=== PATIENT | male | born 1955 | race Caucasian/White ===

== ENCOUNTER 2016-03-29 04:50 | Inpatient (IN) | payer OTHER ==
[2016-03-29] VITALS (19 sets, daily range): BP systolic 104–172; BP diastolic 63–97; PULSE 56–89; RESP 16–35; TEMP 99.5–101.9; O2SAT 90–98
[~2016-03-29] VITALS: Ht 177.8 cm; Wt 112.8 kg
[~2016-03-29 04:50] MED LIST: APIX5TAB PO; ATOR20TA PO; METF500 PO; METO50TA PO; MORPHINE SULFATE 4 MG/ML INJ IV PUSH PRN
[2016-03-29] MEDS ORDERED: METO50TA PO (05:21)
[2016-03-29] MEDS ORDERED: METF-381 PO (05:21)
[2016-03-29] MEDS ORDERED: APIX5TAB PO (05:21)
[2016-03-29] MEDS ORDERED: ATOR20TA15 PO (05:21)
--- NOTE | 2016-03-29 05:24 | PD ---
HPI Chief Complaint: Respiratory Symptoms Time Seen by Provider: 05:17 Travel History International Travel<30 days: No Contact w/Intl Traveler<30days: No Traveled to known affect area: No History of Present Illness HPI 60-year-old male presents to the emergency department by private transportation the care of his spouse for evaluation of cough congestion subjective fever and shortness of breath with wheezing. Patient has history of atrial fibrillation status post ablation November 2015 diabetes hypertension and dyslipidemia. Patient is a nonsmoker. Patient has had cough productive of yellowish brown sputum. Patient states due to wheezing and shortness of breath tonight could not sleep and decided to come to the emergency room. Patient has had symptoms for 3 days. Patient is not contacted his primary care provider. Patient's had no changes medications. Patient is not currently on antibiotic. Patient did not have influenza vaccine for the season. Spouse is not ill. Patient also complains of low back pain. Patient states symptoms are waned him when he's had food poisoning in the past. No report of nausea vomiting or diarrhea. No report of dietary indiscretion well water ingestion or foreign travel. Patient is prescribed Eliquis. No report of dysuria frequency urgency or hematuria. Patient's primary care provider Dr. Archibald, cardiologists Dr Tee and Dr Graham. [facility] Past Medical History Narrative Medical Atrial fibrillation/flutter hypertension dyslipidemia diabetes sleep apnea cardiac ablation no tobacco use nursing notes reviewed Atrial Fibrillation: Yes (A FLUTTER) Cancer: No Cardiovascular Problems: Yes (A-FLUTTER) Chest Pain: No Diabetes: Yes Patient Takes Glucophage: Yes Diminished Hearing: No Gastrointestinal Disorders: No Glaucoma: No Hepatitis: No Hiatal Hernia: No Hypertension: Yes Respiratory: Yes (SLEEP APNEA) Integumentary: No Thyroid Disease: No Tetanus Vaccination: Never Vaccinated Influenza Vaccination: No Past Surgical History Thoracic Surgery: No Social History Alcohol Use: Yes (WEEKLY) Tobacco Use: No Substance Use: No Allergies-Medications (Allergen,Severity, Reaction): Coded Allergies: No Known Allergies (Unverified , 03/29/16) Reported Meds & Prescriptions Reported Meds & Active Scripts Active Reported Metformin ER (Metformin HCl) 500 Mg Tab 500 Mg PO BID Eliquis (Apixaban) 5 Mg Tab 5 Mg PO BID Metoprolol Tartrate 50 Mg Tab 50 Mg PO BID Atorvastatin (Atorvastatin Calcium) 20 Mg Tab 20 Mg PO HS Review of Systems Except as stated in HPI: all other systems reviewed are Neg General / Constitutional: Positive: Fever HENT: Positive: Congestion (subjective cough productive of yellow-brown sputum) Cardiovascular: No: Chest Pain or Discomfort, Palpitations, Diaphoresis, Edema Respiratory: Positive: Cough, Shortness of Breath, Wheezing, Orthopnea Gastrointestinal: Positive: Constipation, No: Nausea, Vomiting, Abdominal Pain Genitourinary: Positive: Flank Pain, No: Dysuria Musculoskeletal: No: Myalgias, Arthralgias Skin: No Rash Neurologic: No: Weakness Psychiatric: Positive: Anxiety Hematologic/Lymphatic: No: Lymph Node Enlargement Physical Exam Narrative GENERAL: Well-developed well-nourished male in no acute distress no respiratory distress SKIN: Warm and dry. HEAD: Normocephalic. EYES: No scleral icterus. No injection or drainage. NECK: Supple, trachea midline. No JVD or lymphadenopathy. CARDIOVASCULAR: Regular rate and rhythm without murmurs, gallops, or rubs. RESPIRATORY: Breath sounds equal bilaterally except for right basilar crackles. No accessory muscle use. GASTROINTESTINAL: Abdomen soft, non-tender, nondistended. MUSCULOSKELETAL: No cyanosis, or trace pretibial pitting edema (patient reports this is chronic and not new for him). BACK: Nontender without obvious deformity. No CVA tenderness. Data Data Last Documented VS Vital Signs Date Time Temp Pulse Resp B/P Pulse Ox O2 Delivery O2 Flow Rate FiO2 03/29/16 07:28 99.6 87 19 138/64 92 Room Air Orders Complete Blood Count With Diff (03/29/16 05:17) Basic Metabolic Panel (Bmp) (03/29/16 05:17) B-Type Natriuretic Peptide (03/29/16 05:17) Act Partial Throm Time (Ptt) (03/29/16 05:17) Prothrombin Time / Inr (Pt) (03/29/16 05:17) Magnesium (Mg) (03/29/16 05:17) Troponin I (03/29/16 05:17) Influenzae A/B Antigen (03/29/16 05:17) Iv Access Insert/Monitor (03/29/16 05:17) Electrocardiogram (03/29/16 05:17) Ecg Monitoring (03/29/16 05:17) Oximetry (03/29/16 05:17) Oxygen Administration (03/29/16 05:17) Chest, Single Ap (03/29/16 05:17) Sodium Chloride 0.9% Flush (Ns Flush) (03/29/16 05:30) Urinalysis - C+S If Indicated (03/29/16 05:19) Acetaminophen (Tylenol) (03/29/16 05:45) Blood Culture (03/29/16 05:58) Ceftriaxone Inj (Rocephin Inj) (03/29/16 06:00) Azithromycin Inj (Zithromax Inj) (03/29/16 06:00) Acetaminophen (Tylenol) (03/29/16 06:00) Lactic Acid (03/29/16 05:58) Albuterol-Ipratropium Neb (Duoneb Neb) (03/29/16 06:00) Ondansetron Inj (Zofran Inj) (03/29/16 07:00) Morphine Inj (Morphine Inj) (03/29/16 07:00) Nitroglycerin 2% Oint (Nitroglycerin 2% (03/29/16 07:15) Admit Order (Ed Use Only) (03/29/16 ) ^ Saline Lock (03/29/16 07:35) Resp Oxygen Robby C Titrat 1-4 L (03/29/16 ) ^ Notify Dr: Other (03/29/16 07:35) Sodium Chloride 0.9% Flush (Ns Flush) (03/29/16 09:00) Sodium Chloride 0.9% Flush (Ns Flush) (03/29/16 07:45) Consult Cardiology (03/29/16 07:35) Labs Laboratory Tests Test 03/29/16 03/29/16 05:35 06:05 White Blood Count 7.3 TH/MM3 Red Blood Count 4.41 MIL/MM3 Hemoglobin 13.1 GM/DL Hematocrit 38.9 % Mean Corpuscular Volume 88.2 FL Mean Corpuscular Hemoglobin 29.6 PG Mean Corpuscular Hemoglobin 33.6 % Concent Red Cell Distribution Width 12.3 % Platelet Count 207 TH/MM3 Mean Platelet Volume 8.1 FL Neutrophils (%) (Auto) 79.1 % Lymphocytes (%) (Auto) 9.1 % Monocytes (%) (Auto) 10.4 % Eosinophils (%) (Auto) 1.0 % Basophils (%) (Auto) 0.4 % Neutrophils # (Auto) 5.7 TH/MM3 Lymphocytes # (Auto) 0.7 TH/MM3 Monocytes # (Auto) 0.8 TH/MM3 Eosinophils # (Auto) 0.1 TH/MM3 Basophils # (Auto) 0.0 TH/MM3 CBC Comment DIFF FINAL Differential Comment Prothrombin Time 11.7 SEC Prothromb Time International 1.1 RATIO Ratio Activated Partial 32.8 SEC Thromboplast Time Sodium Level 138 MEQ/L Potassium Level 3.9 MEQ/L Chloride Level 103 MEQ/L Carbon Dioxide Level 25.5 MEQ/L Anion Gap 10 MEQ/L Blood Urea Nitrogen 14 MG/DL Creatinine 0.70 MG/DL Estimat Glomerular Filtration 114 ML/MIN Rate Random Glucose 195 MG/DL Calcium Level 8.6 MG/DL Magnesium Level 1.6 MG/DL Troponin I 0.24 NG/ML B-Type Natriuretic Peptide 221 PG/ML Lactic Acid Level 1.2 mmol/L MDM Medical Decision Making Medical Screen Exam Complete: Yes Emergency Medical Condition: Yes Medical Record Reviewed: Yes Interpretation(s) EKG: accelerated junctional rhythm rate [address] elevation or injury pattern change noted cxr: Right lower lobe infiltrate, cardiomegaly FINDINGS: A single portable frontal view of the chest shows a vague area of consolidation within the medial right lung base. Remaining lungs are clear. No effusions. Heart is normal in size. Degenerative changes at the left a.c. joint. CONCLUSION: Right lower lobe infiltrate. Heron Downs Jr., MD on March 29, 2016 at 5:53 Board Certified Radiologist. This report was verified electronically. CBC: Values in normal range except for 79% neutrophils by automated differential Metabolic panel values grossly within normal range except for hyperglycemia of 195 Coagulation studies: Prolongation of PT and APTT lactic acid: 1.2, not elevated troponin I: elevated at 0.24 bnp: 200 Differential Diagnosis Cough, bronchitis, pneumonia, influenza, CHF Narrative Course Patient placed on cardiac nurse specialist IV access obtained EKG performed specimens collected and sent for resulting; patient's temperature in triage 100.2 we'll obtain repeat temperature to see if fever is worsening and presumptively administer acetaminophen 650 mg by mouth times one dose Chest x-ray performed and consistent with exam of right lower lobe crackles and infiltrate is identified in the right lower lobe on imaging study; repeat temperature was 101.9F additional acetaminophen 325 mg administered for a 1 g dose of acetaminophen; patient presumptively administered azithromycin 500 mg IV piggyback and Rocephin 1 g IV piggyback for community-acquired pneumonia; antibiotics were administered after blood cultures obtained and lactic acid was added to laboratory tests. Patient also continued to complain of wheezing and administered a one-time DuoNeb updraft. EKG is consistent with accelerated junctional rhythm junctional tachycardia versus a sinus tachycardia with first- degree AV block with poor P wave voltage. Patient does not appear to be in atrial fibrillation or atrial flutter. Sepsis Criteria SIRS Criteria (2 or more): Temp > 100.9 or < 96.8 (T: 101.9F), Heart rate over 90 (EKG: rate 103) Sepsis Criteria (SIRS+source): Infect source susp/known (RLL infiltrate) Criteria Outcome: Meets sepsis criteria Physician Communication Physician Communication case discussed with DR Calderon--will admit to his service --cardiology to determine [facility] re: elevated troponin I and paroxysmal a-fib case discussed with Dr Bruce covering for Dr Tee -- may stay at [facility] Diagnosis Primary Impression: Right pulmonary infiltrate on CXR Additional Impressions: Elevated troponin I level Atrial fibrillation Qualified Code: I48.0 - Paroxysmal atrial fibrillation Sepsis Qualified Code: A41.9 - Sepsis, due to unspecified organism Diabetes Admitting Information Admitting Physician Requests: Admit Inessa Brandt MD Mar 29, 2016 05:24
[2016-03-29] MEDS ORDERED: SODIUM CHLORIDE 0.9% FLUSH 5 ML FLUSH IVF PRN ×2 (05:30→07:45)
[2016-03-29] MEDS ORDERED: ACETAMINOPHEN 325 MG TAB PO ONE ×2 (05:45→06:00)
[2016-03-29 05:51] LABS: AUTOMATED NEUTROPHIL # 5.7 TH/MM3 (1.8-7.7); BASOPHIL % 0.4 % (0.0-2.0); EOSINOPHIL # 0.1 TH/MM3 (0-0.4); HEMATOCRIT 38.9 % (39.0-51.0); HEMO FLAGS DIFF FINAL; LYMPH % 9.1 % (9.0-44.0); LYMPHOCYTE # 0.7 TH/MM3 (1.0-4.8); MEAN CELL VOLUME 88.2 FL (80.0-100.0); MEAN CORPUSCULAR HEMOGLOBIN 29.6 PG (27.0-34.0); MEAN CORPUSCULAR HGB CONC 33.6 % (32.0-36.0); MONO % 10.4 % (0.0-8.0); NEUT % 79.1 % (16.0-70.0); PLATELET COUNT 207 TH/MM3 (150-450); RED BLOOD COUNT 4.41 MIL/MM3 (4.50-5.90); RED CELL DISTRIBUTION WIDTH 12.3 % (11.6-17.2); WHITE BLOOD COUNT 7.3 TH/MM3 (4.0-11.0)
--- NOTE | 2016-03-29 05:56 | RADHPO ---
EXAM DATE/TIME: 03/29/2016 05:46 [place] COMPARISON: No previous studies available for comparison. INDICATIONS : Cough, congestion MEDICAL HISTORY : Hypertension. SURGICAL HISTORY : None. ENCOUNTER: Initial ACUITY: 2 days PAIN SCORE: 4/10 LOCATION: Bilateral chest FINDINGS: A single portable frontal view of the chest shows a vague area of consolidation within the medial rig ht lung base. Remaining lungs are clear. No effusions. Heart is normal in size. Degenerative changes at the left a.c. joint. CONCLUSION: Right lower lobe infiltrate. Heron Downs Jr., MD on March 29, 2016 at 5:53 Board Certified Radiologist. This report was verified electronically.
[2016-03-29 05:59] LABS: POTASSIUM 3.9 MEQ/L (3.5-5.1)
[2016-03-29] MEDS ORDERED: RESP: ALBUTEROL 2.5 MG/IPRATROPIUM 0.5 MG NEB (SCH) NEB ONE (06:00)
[2016-03-29] MEDS ORDERED: cefTRIAXone INJ 1,000 MG in SODIUM CHLORIDE 0.9% INJ 100 ML IV ONE (06:00)
[2016-03-29] MEDS ORDERED: AZITHROMYCIN INJ 500 MG in SODIUM CHLOR 0.9% 250 ML INJ 250 ML IV ONE (06:00)
[2016-03-29 06:02] LABS: BICARBONATE 25.5 MEQ/L (21.0-32.0); MAGNESIUM 1.6 MG/DL (1.5-2.5)
[2016-03-29 06:04] LABS: APTT (PATIENT) 32.8 SEC (24.3-30.1); INTERNATIONAL NORMALIZED RATIO 1.1 RATIO; PROTHROMBIN TIME - PATIENT 11.7 SEC (9.8-11.6)
[2016-03-29] MEDS ORDERED: MORPHINE SULFATE 4 MG/ML INJ IV PUSH ONE (07:00)
[2016-03-29] MEDS ORDERED: ONDANSETRON HCL 4 MG/2 ML VIAL IV PUSH ONE (07:00)
[2016-03-29] MEDS ORDERED: NITROGLYCERIN 2% OINT 1 GM PACKET TOPICAL ONE (07:15)
[2016-03-29 08:56] LABS: GLUCOSE,URINE 250 mg/dL (NEG); NITRITE,URINE NEG (NEG); PH, URINE 5.5 (5.0-8.5)
[2016-03-29 08:59] LABS: BLOOD, URINE MOD (NEG); KETONE, URINE 80 OR GREATER mg/dL (NEG)
[2016-03-29] MEDS ORDERED: RESP: ALBUTEROL 2.5 MG/IPRATROPIUM 0.5 MG NEB (PRN) NEB (09:00)
[2016-03-29] MEDS ORDERED: SODIUM CHLORIDE 0.9% FLUSH 5 ML FLUSH FLUSH PRN (09:00)
[2016-03-29] MEDS ORDERED: NALOXONE HCL 0.4 MG/ML AMP IV PRN (09:00)
[2016-03-29] MEDS ORDERED: SODIUM CHLORIDE 0.9% FLUSH 5 ML FLUSH IVF SCH (09:00)
[2016-03-29] MEDS: METOPROLOL TARTRATE 50 MG TAB PO SCH ×2 (09:00→20:42)
[2016-03-29] MEDS: SODIUM CHLORIDE 0.9% FLUSH 5 ML FLUSH FLUSH SCH ×2 (09:00→20:44)
[2016-03-29] MEDS ORDERED: ACETAMINOPHEN 325 MG TAB PO PRN (09:00)
[2016-03-29 09:01] LABS: COMMENT (UR) CULT NOT INDICATED; CULTURE IF INDICATED CULT NOT INDICATED; METHOD OF COLLECTION CLEAN CATCH; RBC, URINE 0-3 /hpf (0-3); SQUAMOUS EPITHELIAL CELL URINE 0-5 /hpf (0-5); URINE COLOR DARK-YELLOW (YELLW/STRAW); WBC, URINE 0-2 /hpf (0-5)
[2016-03-29] MEDS: APIXABAN 5 MG TABLET PO SCH ×2 (09:27→20:42)
[2016-03-29] MEDS ORDERED: metFORMIN HCL 500 MG TAB PO SCH (10:00)
--- NOTE | 2016-03-29 12:48 | HHI.HP ---
HPI Service [facility] Hospitalists Primary Care Physician No Primary Care Physician Admission Diagnosis RLL infiltrate; elevated troponin I; sepsis; h/o afib Chief Complaint: cough congestion 3 days Travel History International Travel<30 Days: No Contact w/Intl Traveler <30 Da: No Traveled to Known Affected Are: No Sepsis Criteria SIRS Criteria (2 or more): Temp > 100.9 or < 96.8, Heart rate over 90 History of Present Illness 60-year-old male presents to the emergency department by private transportation the care of his spouse for evaluation of cough congestion subjective fever and shortness of breath with wheezing. Patient has history of atrial fibrillation status post ablation November 2015 diabetes hypertension and dyslipidemia. Patient is a nonsmoker. Patient has had cough productive of yellowish brown sputum. Patient states due to wheezing and shortness of breath tonight could not sleep and decided to come to the emergency room. Patient has had symptoms for 3 days. Patient is not contacted his primary care provider. Patient's had no changes medications. Patient is not currently on antibiotic. Patient did not have influenza vaccine for the season. Spouse is not ill. Patient also complains of low back pain. Patient states symptoms are waned him when he's had food poisoning in the past. No report of nausea vomiting or diarrhea. No report of dietary indiscretion well water ingestion or foreign travel. Patient is prescribed Eliquis. No report of dysuria frequency urgency or hematuria. Patient's primary care provider Dr. Archibald, cardiologists Dr Tee and Dr Graham. In er found to have rt lower lung infiltrate and did have sirs criteria and had positive troponin ,was started on ntg paste and has been chest pain free. Review of Systems Respiratory: COMPLAINS OF: Cough, Wheezing Past Family Social History Past Medical History atrial fib s/p ablatiopn ,hypertension,dyslipidemia,diabetes ?sleep apnea Past Surgical History none Reported Medications metformin 1000 bid,elsquis 5 bid,metoprolol 50 bid,atorvastatin 20 Allergies: Coded Allergies: No Known Allergies (Unverified , 03/29/16) Social History occ etoh Physical Exam Vital Signs Vital Signs Date Time Temp Pulse Resp B/P Pulse Ox O2 Delivery O2 Flow Rate FiO2 03/29/16 10:55 100.0 84 17 148/67 97 Nasal Cannula 2 03/29/16 10:51 97 Nasal Cannula 2 03/29/16 10:51 Nasal Cannula 2 03/29/16 10:00 56 17 104/63 96 Nasal Cannula 2 03/29/16 08:48 75 17 140/70 98 Nasal Cannula 2 03/29/16 08:48 93 Nasal Cannula 2.00 03/29/16 07:58 93 Nasal Cannula 2 03/29/16 07:28 99.6 87 19 138/64 92 Room Air 03/29/16 05:52 101.9 87 18 172/78 93 Room Air 03/29/16 05:52 18 93 Room Air 03/29/16 05:51 93 Room Air 03/29/16 05:14 18 94 Room Air 03/29/16 05:01 100.2 89 16 164/97 93 Room Air Physical Exam GENERAL: This is a well-nourished, well-developed patient, in no apparent distress. SKIN: No rashes, ecchymoses or lesions. Cool and dry. HEAD: Atraumatic. Normocephalic. No temporal or scalp tenderness. EYES: Pupils equal round and reactive. Extraocular motions intact. No scleral icterus. No injection or drainage. ENT: Nose without bleeding, purulent drainage or septal hematoma. Throat without erythema, tonsillar hypertrophy or exudate. Uvula midline. Airway patent. NECK: Trachea midline. No JVD or lymphadenopathy. Supple, nontender, no meningeal signs. CARDIOVASCULAR: Regular rate and rhythm without murmurs, gallops, or rubs. RESPIRATORY: Decrease breath sound rhonchi rt base GASTROINTESTINAL: Abdomen soft, non-tender, nondistended. No hepato-splenomegaly , or palpable masses. No guarding. MUSCULOSKELETAL: Extremities without clubbing, cyanosis, or edema. No joint tenderness, effusion, or edema noted. No calf tenderness. Negative Homans sign bilaterally. NEUROLOGICAL: Awake and alert. Cranial nerves II through XII intact. Motor and sensory grossly within normal limits. Five out of 5 muscle strength in all muscle groups. Normal speech. Laboratory Laboratory Tests Test 03/29/16 03/29/16 03/29/16 05:35 06:05 08:45 White Blood Count 7.3 Red Blood Count 4.41 Hemoglobin 13.1 Hematocrit 38.9 Mean Corpuscular Volume 88.2 Mean Corpuscular Hemoglobin 29.6 Mean Corpuscular Hemoglobin 33.6 Concent Red Cell Distribution Width 12.3 Platelet Count 207 Mean Platelet Volume 8.1 Neutrophils (%) (Auto) 79.1 Lymphocytes (%) (Auto) 9.1 Monocytes (%) (Auto) 10.4 Eosinophils (%) (Auto) 1.0 Basophils (%) (Auto) 0.4 Neutrophils # (Auto) 5.7 Lymphocytes # (Auto) 0.7 Monocytes # (Auto) 0.8 Eosinophils # (Auto) 0.1 Basophils # (Auto) 0.0 CBC Comment DIFF FINAL Differential Comment Prothrombin Time 11.7 Prothromb Time International 1.1 Ratio Activated Partial 32.8 Thromboplast Time Sodium Level 138 Potassium Level 3.9 Chloride Level 103 Carbon Dioxide Level 25.5 Anion Gap 10 Blood Urea Nitrogen 14 Creatinine 0.70 Estimat Glomerular Filtration 114 Rate Random Glucose 195 Calcium Level 8.6 Magnesium Level 1.6 Troponin I 0.24 B-Type Natriuretic Peptide 221 Lactic Acid Level 1.2 Urine Collection Type CLEAN CATCH Urine Color DARK-YELLOW Urine Turbidity CLEAR Urine pH 5.5 Urine Specific [place] 1.029 Urine Protein 100 Urine Glucose (UA) 250 Urine Ketones 80 OR GREATER Urine Occult Blood MOD Urine Nitrite NEG Urine Bilirubin NEG Urine Leukocyte Esterase NEG Urine RBC 0-3 Urine WBC 0-2 Urine Squamous Epithelial 0-5 Cells Microscopic Urinalysis Comment CULT NOT INDICATED Date/Time Procedure Status Source Growth 03/29/16 06:10 Aerobic Blood Culture Received Blood Peripheral Pending 03/29/16 06:10 Anaerobic Blood Culture Received Blood Peripheral Pending 03/29/16 05:33 Influenza Types A,B Antigen (SAIRA) Received Nasal Washing Pending Result Diagram: 03/29/16 0535 03/29/16 0535 Course in er received rocephin ,zithromax ,nebulizer and ntg paste Septic Shock Reassessment Heart: Regular rate and rhythm Lungs: Diminished Skin: Warm Capillary Refill: Brisk Assessment and Plan Problem List: (1) Right pulmonary infiltrate on CXR Status: Acute Plan: contonie rocephin and zithromax IV and nebulizer as necessary add cough medicine (2) Elevated troponin I level Status: Acute Plan: recheck troponin cardiology was consulted as heart rate initially was elevated appears stable now doubt significance troponin will recheck (3) Atrial fibrillation Status: Resolved Plan: ekg shows no atrial fib at this time (4) Diabetes Status: Chronic Plan: continue metformin (5) Sepsis Status: Acute Plan: doubt sepsis ,barely meets criteria lactic acid normal ,heart rate now controlled temp improved Assessment and Plan as above Code Status full Discussed Condition With patient Physician Certification 2 Midnight Certification Type: Admission for Inpatient Services Order for Inpatient Services The services are ordered in accordance with Medicare regulations or non- Medicare payer requirements, as applicable. In the case of services not specified as inpatient-only, they are appropriately provided as inpatient services in accordance with the 2-midnight benchmark. Estimated LOS (days): 2 2 days is the estimated time the patient will need to remain in the hospital, assuming treatment plan goals are met and no additional complications. Post-Hospital Plan: Home Problem Qualifiers (1) Atrial fibrillation: Qualified Code: I48.0 - Paroxysmal atrial fibrillation (2) Sepsis: Qualified Code: A41.9 - Sepsis, due to unspecified organism Krunal Blackwell MD Mar 29, 2016 12:48
[2016-03-29] MEDS: guaiFENesin/CODEINE SYRUP 200 MG/20 MG/10 ML CUP PO PRN ×2 (12:55→18:56)
[2016-03-29] MEDS ORDERED: MORPHINE SULFATE 4 MG/ML INJ IV PRN (16:00)
[2016-03-29] MEDS ORDERED: MORPHINE SULFATE 4 MG/ML INJ IV PUSH PRN (17:00)
--- NOTE | 2016-03-29 18:10 | EKG ---
Date Performed: 03/29/2016 Time Performed: 05:19:20 PTAGE: 60 years EKG: Accelarated junctional rhythm Left axis deviation Poor R wave progression - probable normal variant When compared to previous tracing, the right bundle branch block Has resolved. Abnormal ECG PREVIOUS TRACING : 12/11/2015 08.07 DOCTOR: Ana Bruce Interpretating Date/Time 03/29/2016 18:39:35
--- NOTE | 2016-03-29 20:28 | MB ---
cc: ADAM HAJI MD DATE OF CONSULTATION: 03/29/2016 REASON FOR CONSULTATION: Atrial fibrillation. HISTORY OF PRESENT ILLNESS Mr. Perez is a 60-year-old patient of Dr. Tee and Dr. Graham. He had an ablation of his atrial fibrillation in November. He has done reasonably well since. The patient reports that he has had three days of progressive shortness of breath and was unable to lie flat at night which precipitated his visit last night. He was subsequently diagnosed with pneumonia. He, however, also was having atrial fibrillation and AIVR as well as elevated troponin. Cardiology was subsequently consulted. The patient reports to me that his systolic pressure last night before he came in was over 200. Other than the shortness of breath, he does not have any cardiac complaints. PAST MEDICAL HISTORY: Significant for: 1. Hypertension. 2. Hyperlipidemia. 3. Diabetes. OUTPATIENT MEDICATIONS: 1. Metformin. 2. Eliquis. 3. Metoprolol. 4. Atorvastatin. ALLERGIES: NO KNOWN DRUG ALLERGIES. SOCIAL HISTORY: The patient is and occasionally has alcohol. REVIEW OF SYSTEMS: Except what is mentioned in the HPI, all 12 systems are negative. PHYSICAL EXAMINATION: VITAL SIGNS: 99.5, 76, 144/65. GENERAL: He is a well-appearing man who is in no apparent distress. NECK: Free from JVD. LUNGS: Bilaterally clear to auscultation. CARDIOVASCULAR: He has a normal S1-S2. I did not appreciate any murmurs, rubs, or gallops. ABDOMEN: Soft. EXTREMITIES: Free from edema. LABORATORY VALUES: Significant for serial troponins of 0.24 and 0.27 with a BNP of 221. Chest x-ray shows right lower lobe infiltrate. EKG: Accelerated junctional rhythm at 103 beats per minute. IMPRESSION: Atrial fibrillation. The patient does have a history of same. I did not see any definitive EKGs for atrial fibrillation, rather accelerated junctional rhythm. In any case, I would continue the patient on his present medical regimen that includes both the metoprolol and Eliquis. Indeterminate troponin. This could have been precipitated by either his elevated blood pressure or the pneumonia/sepsis. The patient reports a normal stress test, just prior to his ablation this fall. He is not having any true cardiac symptoms, thus at this point I would just simply continue medical management. Hypertension. The patient is under fair control currently. Considering he could be given adding Amlodipine or lisinopril if his pressure trends up. I will be available on a p.r.n. basis. Nery Menjivar/SHAHZAD /6:23 PM /8:19 PM
[2016-03-29] MEDS: ATORVASTATIN 20 MG TAB PO SCH (20:42)
[2016-03-29] MEDS: metFORMIN HCL 500 MG TAB PO SCH (20:43)
[2016-03-29] MEDS: NITROGLYCERIN 2% OINT 1 GM PACKET TOPICAL SCH (21:40)
[2016-03-30] VITALS (8 sets, daily range): BP systolic 137–160; BP diastolic 71–77; PULSE 64–82; RESP 22–26; TEMP 98–100.8; O2SAT 95–98
[2016-03-30] MEDS ORDERED: MAGNESIUM HYDROXIDE SUSP 30 ML CUP PO ONE (00:15)
[2016-03-30] MEDS ORDERED: ZOLPIDEM TARTRATE 10 MG TAB PO ONE (00:15)
[2016-03-30] MEDS ORDERED: ZOLPIDEM TARTRATE 10 MG TAB PO PRN (00:15)
[2016-03-30] MEDS ORDERED: MAGNESIUM HYDROXIDE SUSP 30 ML CUP PO PRN (00:15)
[2016-03-30 05:19] LABS: AUTOMATED NEUTROPHIL # 4.6 TH/MM3 (1.8-7.7); BASOPHIL % 0.3 % (0.0-2.0); EOSINOPHIL # 0.1 TH/MM3 (0-0.4); EOSINOPHIL % 0.8 % (0.0-4.0); HEMATOCRIT 36.8 % (39.0-51.0); HEMO FLAGS DIFF FINAL; LYMPH % 18.3 % (9.0-44.0); LYMPHOCYTE # 1.2 TH/MM3 (1.0-4.8); MEAN CELL VOLUME 89.1 FL (80.0-100.0); MEAN CORPUSCULAR HEMOGLOBIN 28.8 PG (27.0-34.0); MEAN CORPUSCULAR HGB CONC 32.3 % (32.0-36.0); MONO % 13.6 % (0.0-8.0); PLATELET COUNT 195 TH/MM3 (150-450); RED BLOOD COUNT 4.13 MIL/MM3 (4.50-5.90); RED CELL DISTRIBUTION WIDTH 12.4 % (11.6-17.2); WHITE BLOOD COUNT 6.8 TH/MM3 (4.0-11.0)
[2016-03-30 05:23] LABS: POTASSIUM 3.5 MEQ/L (3.5-5.1)
[2016-03-30 05:26] LABS: BICARBONATE 27.1 MEQ/L (21.0-32.0)
[2016-03-30] MEDS: NITROGLYCERIN 2% OINT 1 GM PACKET TOPICAL SCH ×3 (05:59→22:00)
[2016-03-30] MEDS: AZITHROMYCIN INJ 500 MG in SODIUM CHLOR 0.9% 250 ML INJ 250 ML IV SCH (06:00)
[2016-03-30] MEDS: APIXABAN 5 MG TABLET PO SCH ×2 (09:38→20:52)
[2016-03-30] MEDS: METOPROLOL TARTRATE 50 MG TAB PO SCH ×2 (09:38→20:52)
[2016-03-30] MEDS: metFORMIN HCL 500 MG TAB PO SCH (09:38)
[2016-03-30] MEDS: cefTRIAXone INJ 1,000 MG in SODIUM CHLORIDE 0.9% INJ 100 ML IV SCH (09:39)
[2016-03-30] MEDS: SODIUM CHLORIDE 0.9% FLUSH 5 ML FLUSH FLUSH SCH ×2 (09:39→21:02)
--- NOTE | 2016-03-30 10:37 | HHI.PR ---
Subjective Remarks Patient admitted with pneumonia and positive troponin ,seen by cardiology and no active cardiac problem at this time . Patient feeling ok but did drop oxygen sat last night and has more rhonchi today . I have change nebulizer to q 6h from prn and will recheck cxr and get CT thorax also ask for pulmonary consult. Patient will have walk test today. Objective Vitals GENERAL: Well-nourished, well-developed patient. SKIN: Warm and dry. HEAD: Normocephalic. EYES: No scleral icterus. No injection or drainage. NECK: Supple, trachea midline. No JVD or lymphadenopathy. CARDIOVASCULAR: Regular rate and rhythm without murmurs, gallops, or rubs. RESPIRATORY: Breath sounds decreased with bilateral rhonchi GASTROINTESTINAL: Abdomen soft, non-tender, nondistended. MUSCULOSKELETAL: No cyanosis, or edema. BACK: Nontender without obvious deformity. No CVA tenderness. EXTREMITIES:no edema Vital Signs Date Time Temp Pulse Resp B/P Pulse Ox O2 Delivery O2 Flow Rate FiO2 03/30/16 08:00 98.3 03/30/16 07:50 96 Nasal Cannula 4.00 03/30/16 04:00 65 03/30/16 04:00 98.2 65 24 147/77 95 03/30/16 01:15 22 03/30/16 00:00 100.8 79 26 137/77 96 03/30/16 00:00 79 03/30/16 00:00 100.8 79 26 137/77 96 03/29/16 21:00 99.8 78 33 122/69 96 03/29/16 21:00 78 33 122/69 96 03/29/16 20:15 96 Nasal Cannula 2.00 03/29/16 20:00 99.8 72 22 147/72 94 03/29/16 20:00 82 03/29/16 20:00 72 22 147/72 94 03/29/16 19:00 80 25 136/64 96 03/29/16 18:15 72 32 154/72 97 03/29/16 18:00 72 33 148/66 96 03/29/16 17:45 80 33 151/79 94 03/29/16 17:30 72 30 149/70 95 03/29/16 17:15 70 30 148/66 95 03/29/16 17:00 72 31 145/72 95 03/29/16 16:49 100.0 80 35 146/73 90 03/29/16 16:36 74 17 144/65 97 Nasal Cannula 2 03/29/16 14:42 99.5 76 17 142/74 95 Nasal Cannula 2 03/29/16 14:36 Nasal Cannula 2 03/29/16 10:55 100.0 84 17 148/67 97 Nasal Cannula 2 03/29/16 10:51 97 Nasal Cannula 2 03/29/16 10:51 Nasal Cannula 2 03/29/16 03/29/16 03/30/16 15:00 23:00 07:00 Intake Total 360 ml 490 ml Output Total 300 ml 400 ml 700 ml Balance -300 ml -40 ml -210 ml Intake Oral 360 ml 240 ml IV Total 250 ml Output Urine Total 300 ml 400 ml 700 ml # Voids 1 # Bowel Movements 0 0 Result Diagram: 03/30/16 0500 03/30/16 0500 A/P Problem List: (1) Right pulmonary infiltrate on CXR Status: Acute Plan: contonie rocephin and zithromax IV and nebulizer as necessary add cough medicine more rhonchi get pulmonary evaluation change to q 6 h nebulizer (2) Elevated troponin I level Status: Acute Plan: recheck troponin cardiology was consulted as heart rate initially was elevated appears stable now doubt significance troponin will recheck cardiology felt no active cardiac disease (3) Atrial fibrillation Status: Resolved Plan: ekg shows no atrial fib at this time (4) Diabetes Status: Chronic Plan: continue metformin (5) Sepsis Status: Acute Plan: doubt sepsis ,barely meets criteria lactic acid normal ,heart rate now controlled temp improved Assessment and Plan patient was hypoxic last night will get walk test Problem Qualifiers (1) Atrial fibrillation: Qualified Code: I48.0 - Paroxysmal atrial fibrillation (2) Sepsis: Qualified Code: A41.9 - Sepsis, due to unspecified organism Krunal Blackwell MD Mar 30, 2016 10:37
[2016-03-30] MEDS: METFORMIN HOLD POST IV CONTRAST XX SCH (13:10)
[2016-03-30] MEDS ORDERED: IOHEXOL 350 MG/ML 10 ML VIAL (for RAD DIAG) IV ONE (13:23)
--- NOTE | 2016-03-30 14:04 | RADHPO ---
EXAM DATE/TIME: 03/30/2016 13:19 [facility] COMPARISON: CHEST SINGLE AP, March 29, 2016, 5:46. INDICATIONS : Cough, short of breath. MEDICAL HISTORY : Hypertension. SURGICAL HISTORY : None. ENCOUNTER: Initial ACUITY: 4 - 6 days PAIN SCORE: 0/10 LOCATION: Bilateral chest FINDINGS: There is improved aeration of the lung handley on today's exam compared to the prior study. The infilt rate in the right lower lung has essentially resolved. There continues to be some pulmonary venous co ngestion in both lung handley. No pleural effusions are seen. The heart size is stable. No new infiltr ates are demonstrated. CONCLUSION: There is improved aeration of both lung handley compared to the prior exam. There is pulmonary venous congestion bilaterally. Chucho Newell MD on March 30, 2016 at 14:01 Board Certified Radiologist. This report was verified electronically.
[2016-03-30] MEDS: RESP: ALBUTEROL 2.5 MG/IPRATROPIUM 0.5 MG NEB (SCH) NEB ×2 (15:08→21:11)
[2016-03-30] MEDS ORDERED: DEXTROSE 50% IN WATER 50 ML VIAL(D50) IV PUSH PRN (15:30)
[2016-03-30] MEDS ORDERED: GLUCAGON 1 MG/ML VIAL OTHER PRN (15:30)
--- NOTE | 2016-03-30 15:38 | RADHPO ---
EXAM DATE/TIME: 03/30/2016 13:09 [facility] COMPARISON: CHEST PA & LAT, March 30, 2016, 13:19. INDICATIONS : Productive cough. IV CONTRAST: 75 cc Omnipaque 350 (iohexol) IV RADIATION DOSE: 26.36 CTDIvol (mGy) MEDICAL HISTORY : Cardiovascular disease. Diabetes. SURGICAL HISTORY : None. ENCOUNTER: Initial ACUITY: 2 days PAIN SCALE: 2/10 LOCATION: chest TECHNIQUE: Volumetric scanning of the chest was performed. Using automated exposure control and adjustment of t he mA and/or kV according to patient size, radiation dose was kept as low as reasonably achievable to obtain optimal diagnostic quality images. FINDINGS: LUNGS: A few mild scattered interstitial infiltrates are noted bilaterally. Otherwise there is good aeration of both lung handley. There is a mild infiltrate in the left lung base. PLEURA: There is either some mild pleural thickening versus small effusions. MEDIASTINUM: A few mildly prominent nonspecific mediastinal lymph nodes are demonstrated. There is a pretracheal l ymph node measuring 2.2 cm. There is a subcarinal lymph node measuring 2.8 cm. AXILLAE: Within normal limits. No lymphadenopathy. SKELETAL: Within normal limits for patient age. Primary bony degenerative changes. MISCELLANEOUS: The visualized upper abdominal organs demonstrate no acute abnormality. CONCLUSION: 1. A few mild scattered interstitial infiltrates are noted in both lung handley. There is a mild infil trate in the left lung base. 2. There are several mildly prominent nonspecific mediastinal lymph nodes. The largest lymph node toshia sures 2.8 cm in the subcarinal region.. This could represent reactive adenopathy. However, malignancy is not excluded. A PET scan could be performed to evaluate for focal hypermetabolic activity. Other hancock, a followup noncontrast CT thorax will be performed in approximately 4 weeks after appropriate m edical therapy to evaluate for improvement. Chucho Newell MD on March 30, 2016 at 15:28 Board Certified Radiologist. This report was verified electronically.
[2016-03-30] MEDS: INSULIN ASPART SUPPLEMENTAL SCALE SQ SCH ×2 (16:00→21:00)
[2016-03-30 18:51] LABS: BLOOD GAS BASE EXCESS 1.6 mmol/L (-2-2); BLOOD GAS CARBOXYHEMOGLOBIN 0.1 % (0-4); BLOOD GAS HCO3 25 mmol/L (22-26); BLOOD GAS METHEMOGLOBIN 0.4 % (0-2); BLOOD GAS O2 HGB SATURATION 89 % (90-100); BLOOD GAS OXYGEN CONTENT 14.6 Vol % (12.0-20.0); BLOOD GAS PCO2 34 mmHg (38-42); BLOOD GAS PO2 58 mmHg (61-120); BLOOD GAS TOTAL HGB 11.6 G/DL (12.0-16.0)
[2016-03-30 18:52] LABS: CRITICAL VALUE YES; DRAW SITE RT RADIAL; FIO2 21 %; NUMBER OF ARTERIAL PUNCTURES 1; STAT NO; ULNAR PULSE PRESENT
--- NOTE | 2016-03-30 19:14 | MB ---
cc: TOSHA HERNANDEZ MD DATE OF CONSULTATION 03/30/[address] Blackwell. REASON FOR CONSULTATION Shortness of breath. HISTORY OF THE PRESENT ILLNESS Mr. Perez is a pleasant 60-year-old white male with a history of hypertension, diabetes mellitus, history of atrial fibrillation status post ablation . He came to the hospital with 2-3 days history of not feeling well. He has congestion in his chest, wheezing, cough hacking type and had fever up to 102 degrees. He did not have any chest pain. No nausea or vomiting. Because of the worsening of his symptoms he came to the hospital. IMAGING He had a chest x-ray done which shows right lower lobe pulmonary infiltrate. He had a CT scan of the chest done which shows few mild scattered interstitial infiltrates, have mildly prominent mediastinal lymph nodes. LABORATORY DATA His CBC showed WBC count 6.8, hemoglobin 11.9, hematocrit 36.8, MCV 89. Platelet count 195. Sodium 139, potassium 3.5, chloride 104, CO2 27, BUN 12, creatinine 0.75. Troponin 0.24. Blood culture is negative. Influenza antigen is negative. PAST MEDICAL HISTORY 1. History of diabetes mellitus. 2. Hypertension. 3. Atrial fibrillation status post ablation. MEDICATIONS He is currently takin. Metformin 1000 mg twice a day. 2. Albuterol/Atrovent nebulizer treatment. 3. He is on insulin. 4. Rocephin 1 gram a day. 5. Zithromax 500 mg a day. 6. Ambien 10 milligrams at nighttime. 7. Nitroglycerin 1/2 inch q.6h. 8. Lipitor 20 mg a day. 9. Robitussin AC cough syrup. 10. Eliquis 5 mg twice a day. 11. Metoprolol 50 mg twice a day. ALLERGIES NO KNOWN DRUG ALLERGIES. SOCIAL HISTORY He has no history of smoking. Drinks socially. He works as a registry nurse. FAMILY HISTORY He is now for 10 years. He has three children. REVIEW OF SYSTEMS Normally he is up, around and active. Weight is stable. No malignancy. No deep venous thrombosis or pulmonary embolism. No seizure, stroke or epilepsy. PHYSICAL EXAMINATION GENERAL: Well built, well-nourished male not in any acute distress. VITAL SIGNS: Blood pressure 152/71, heart rate 82, respirations 26, temperature 99.5. HEENT: Pupils are equal and reactive to light. Oral mucosa, nasal mucosa normal. NECK: Supple. JVP not raised. CHEST: Air entry equal bilaterally. Faint rhonchi. CARDIOVASCULAR: S1, S2 normal. ABDOMEN: Soft, nontender, nondistended. Bowel sounds are present. EXTREMITIES: No edema. IMPRESSION 1. Right lower lobe infiltrate. 2. Mild bronchospasm which is improving. 3. Hypertension. 4. Diabetes mellitus. 5. Atrial fibrillation status post ablation. PLAN We will continue antibiotics Rocephin and Zithromax. Give aerosol treatment. Wean him to room air and get a blood gas. He is on Eliquis twice a day. Ambien 10 milligrams at night. When he gets better we will check his pulmonary function studies. Further treatment will depend on the course in the hospital. Thank you Dr. Blackwell for this consultation. MD BRET Canseco/MIKAEL /6:27 PM /6:48 PM JSOEFA
[2016-03-30] MEDS: ATORVASTATIN 20 MG TAB PO SCH (20:54)
--- NOTE | 2016-03-30 23:41 | EKG ---
Date Performed: 03/30/2016 Time Performed: 05:56:12 PTAGE: 60 years EKG: Sinus rhythm Prolonged QT interval Left anterior fascicular block Borderline ECG PREVIOUS TRACING : 03/29/2016 05.19 DOCTOR: Maria Teresa Graham Interpretating Date/Time 03/30/2016 23:39:45
[2016-03-31] VITALS (7 sets, daily range): BP systolic 141–178; BP diastolic 58–84; PULSE 62–92; RESP 20–26; TEMP 98.5–98.7; O2SAT 90–99
[2016-03-31] MEDS: RESP: ALBUTEROL 2.5 MG/IPRATROPIUM 0.5 MG NEB (SCH) NEB ×3 (03:50→15:40)
[2016-03-31] MEDS: AZITHROMYCIN INJ 500 MG in SODIUM CHLOR 0.9% 250 ML INJ 250 ML IV SCH (05:17)
[2016-03-31] MEDS: NITROGLYCERIN 2% OINT 1 GM PACKET TOPICAL SCH ×2 (05:17→14:00)
[2016-03-31] MEDS: INSULIN ASPART SUPPLEMENTAL SCALE SQ SCH ×3 (06:48→15:07)
[2016-03-31] MEDS: SODIUM CHLORIDE 0.9% FLUSH 5 ML FLUSH FLUSH SCH (08:26)
[2016-03-31] MEDS: METOPROLOL TARTRATE 50 MG TAB PO SCH (08:26)
[2016-03-31] MEDS: cefTRIAXone INJ 1,000 MG in SODIUM CHLORIDE 0.9% INJ 100 ML IV SCH (08:26)
[2016-03-31] MEDS: APIXABAN 5 MG TABLET PO SCH (08:26)
--- NOTE | 2016-03-31 11:10 | HHI.FF ---
Face to Face Verification Diagnosis: (1) Right pulmonary infiltrate on CXR Home Health Nursing Order: IV medication administration Instructions: patient will need 1 week IV rocephin 1gm and zithromax 500 mg IV 1 week,pulse oximetry I have seen patient Hardy Melvin Perez Jr on 03/31/16. My clinical findings support the need for the requested home health care services because: Patient has SOB I certify that my clinical findings support that this patient is homebound because: Unsafe to leave home unassisted patient with pneumonia and is hypxic with ambulation at this time considered home bound Krunal Blackwell MD Mar 31, 2016 11:09
[2016-03-31] MEDS: METFORMIN HOLD POST IV CONTRAST XX SCH (13:10)
[2016-03-31] MEDS ORDERED: IPRASOL NEB (13:33)
[2016-03-31] MEDS ORDERED: ROCE1INJ3 IV (13:33)
[2016-03-31] MEDS ORDERED: METF500 PO (13:33)
[2016-03-31] MEDS ORDERED: NEBULIZER1 MI1 FM (14:09)
--- NOTE | 2016-03-31 14:35 | RADHPO ---
EXAM DATE/TIME: 03/31/2016 13:52 [facility] COMPARISON: No previous studies available for comparison. INDICATIONS : Post PICC line placement. MEDICAL HISTORY : Hypertension. SURGICAL HISTORY : None. ENCOUNTER: Subsequent ACUITY: 1 week PAIN SCORE: 0/10 LOCATION: Right chest FINDINGS: A single view of the chest demonstrates the lungs to be symmetrically aerated without evidence of mas s, infiltrate or effusion. Right PICC line in superior cava. Minimal basilar atelectasis. The cardio mediastinal contours are unremarkable. Osseous structures are intact. CONCLUSION: 1. Minimal basilar atelectasis. Right PICC line in superior vena cava. No pneumothorax. No effusion. Alex Barajas MD on March 31, 2016 at 14:33 Board Certified Radiologist. This report was verified electronically.
--- NOTE | 2016-03-31 18:28 | HHI.DS ---
Discharge Summary Admission Date Mar 29, 2016 at 07:37 Admitting Diagnosis RLL infiltrate; elevated troponin I; sepsis; h/o afib (1) Right pulmonary infiltrate on CXR Diagnosis: Principal (2) Elevated troponin I level Diagnosis: Secondary (3) Atrial fibrillation Diagnosis: Secondary (4) Diabetes Diagnosis: Secondary (5) Sepsis Diagnosis: Secondary Consultants cardiology,pulmonary Procedures PICC line Brief History 60-year-old male presents to the emergency department by private transportation the care of his spouse for evaluation of cough congestion subjective fever and shortness of breath with wheezing. Patient has history of atrial fibrillation status post ablation November 2015 diabetes hypertension and dyslipidemia. Patient is a nonsmoker. Patient has had cough productive of yellowish brown sputum. Patient states due to wheezing and shortness of breath tonight could not sleep and decided to come to the emergency room. Patient has had symptoms for 3 days. Patient is not contacted his primary care provider. Patient's had no changes medications. Patient is not currently on antibiotic. Patient did not have influenza vaccine for the season. Spouse is not ill. Patient also complains of low back pain. Patient states symptoms are waned him when he's had food poisoning in the past. No report of nausea vomiting or diarrhea. No report of dietary indiscretion well water ingestion or foreign travel. Patient is prescribed Eliquis. No report of dysuria frequency urgency or hematuria. Patient's primary care provider Dr. Archibald, cardiologists Dr Tee and Dr Graham. In er found to have rt lower lung infiltrate and did have sirs criteria and had positive troponin ,was started on ntg paste and has been chest pain free. CBC/BMP: 03/30/16 0500 03/30/16 0500 Significant Findings Laboratory Tests Test 03/29/16 03/29/16 03/29/16 03/30/16 05:35 08:45 12:15 05:00 Red Blood Count 4.41 MIL/MM3 4.13 MIL/MM3 (4.50-5.90) (4.50-5.90) Hematocrit 38.9 % 36.8 % (39.0-51.0) (39.0-51.0) Neutrophils (%) (Auto) 79.1 % (16.0-70.0) Monocytes (%) (Auto) 10.4 % 13.6 % (0.0-8.0) (0.0-8.0) Lymphocytes # (Auto) 0.7 TH/MM3 (1.0-4.8) Prothrombin Time 11.7 SEC (9.8-11.6) Activated Partial 32.8 SEC Thromboplast Time (24.3-30.1) Random Glucose 195 MG/DL 157 MG/DL (74-106) (74-106) Troponin I 0.24 NG/ML 0.27 NG/ML 0.24 NG/ML (0.02-0.05) (0.02-0.05) (0.02-0.05) B-Type Natriuretic Peptide 221 PG/ML (0-100) Urine Color DARK-YELLOW (YELLW/STRAW) Urine Protein 100 mg/dL (NEG-TRACE) Urine Glucose (UA) 250 mg/dL (NEG) Urine Ketones 80 OR GREATER mg/dL (NEG) Urine Occult Blood MOD (NEG) Hemoglobin 11.9 GM/DL (13.0-17.0) Test 03/30/16 18:45 Blood Gas Oxygen Saturation 89 % (90-100) Arterial Blood pH 7.48 (7.380-7.420) Arterial Blood Partial 34 mmHg (38-42) Pressure CO2 Arterial Blood Partial 58 mmHg Pressure O2 (61-120) Blood Gas Hemoglobin 11.6 G/DL (12.0-16.0) Imaging Last 24 hours Impressions Chest X-Ray 03/31/16 0000 Signed Impressions: Service Date/Time: Thursday, March 31, 2016 13:52 - CONCLUSION: 1. Minimal basilar atelectasis. Right PICC line in superior vena cava. No pneumothorax. No effusion. Alex Barajas MD PE at Discharge GENERAL: SKIN: Warm and dry. HEAD: Atraumatic. Normocephalic. EYES: Pupils equal and round. No scleral icterus. No injection or drainage. ENT: No nasal bleeding or discharge. Mucous membranes pink and moist. NECK: Trachea midline. No JVD. CARDIOVASCULAR: Regular rate and rhythm. RESPIRATORY: No accessory muscle use. Clear to auscultation. Breath sounds equal bilaterally. GASTROINTESTINAL: Abdomen soft, non-tender, nondistended. Hepatic and splenic margins not palpable. MUSCULOSKELETAL: Extremities without clubbing, cyanosis, or edema. No obvious deformities. NEUROLOGICAL: Awake and alert. No obvious cranial nerve deficits. Motor grossly within normal limits. Five out of 5 muscle strength in the arms and legs. Normal speech. PSYCHIATRIC: Appropriate mood and affect; insight and judgment normal. Hospital Course Patient admitted for rt infiltrate on chest xray and was started on IV rocephin and IV zithromax and nebulizer treatment prn and initial ekg showed possible afib later ekg's showed no a fib ,patient had positive troponin level and was seen by cardiology who felt no active cardiac disease and to continue current meds and treat for pneumonia. Patient did have hypoxia on several occasions which did stabilize on day of discharge. Patient was seen by pulmonary who agreed with treatment had arterial blood gas which did show some hypoxia and is to have PFT when more stable. A CT thorax was done which showed bilateral mild interstitial infiltrates and left infiltrate ,also mediastinal lymph nodes which may represent reactive adenopathy and radiology suggest consider PET scan or in 4 [address] contrast [address] thorax. Patient has felt well without any shortness of breath and passed walk test for hypoxia today. Patient will be discharged with follow up to pulmonary and his new PCP and i will forward notes to his PCP. We will have home health see patient to continue IV rocephin and zithromax 1gm and 500mg for 1 week daily and to monitor his oxygen also will be discharged with nebulizer as this also helped him with his symptoms. I will have patient scheduled for possible PET scan and for CT thorax 4 weeks. Patient labs have remained stable . Pt Condition on Discharge: Fair Discharge Disposition: Disch w/ Home Health Serv Discharge Instructions DIET: Follow Instructions for: Heart Healthy Diet Activities you can perform: Regular-No Restrictions New Medications: Nebulizer (Nebulizer) 1 Mis Mis 1 EA FM Q8HR duo nebulizer q 8h prn PRN SHORTNESS OF BREATH #1 Ref 1 EA Ipratropium-Albuterol Neb (Duoneb) 0.5-2.5 Mg/3 Ml Neb 1 AMPULE NEB Q6HR NEB Shortness of Breath Days 30 ML Metformin (Glucophage) 500 Mg Tab 1000 MG PO BIDPC dm #30 TAB Continued Medications: Apixaban (Eliquis) 5 Mg Tab 5 MG PO BID Blood Clot Prevention #60 Ref 0 TAB Atorvastatin (Atorvastatin) 20 Mg Tab 20 MG PO HS Cholesterol Management #30 Ref 0 TAB Ceftriaxone Inj (Rocephin Inj) 1 Gm Inj 1 GM IV Q24H med to be administered via home health Infection Days 7 Ref 0 VIAL Metoprolol Tartrate (Metoprolol Tartrate) 50 Mg Tab 50 MG PO BID #60 Ref 0 TAB Discontinued Medications: Metformin ER (Metformin ER) 500 Mg Tab 500 MG PO BID Additional Information add zithromax 500 mg IV q day for 1 week Krunal Blackwell MD Mar 31, 2016 18:28
[2016-04-01] MEDS ORDERED: metFORMIN HCL 500 MG TAB PO SCH (18:00)
== END 2016-03-31 17:05 | disposition home health service (06) | DRG 871 ==
LOC: PHED 04:50 → PHEDA 07:37 → PHEDH 11:36 → PHICU 16:50
PROVIDERS: ADMIT Internal Medicine; ATTEND Internal Medicine
PROC: 02HV33Z Insertion of Infusion Device into Superior Vena Cava, Percutaneous Approach (ICD-10-PCS; principal; 2016-03-31)
DX: A41.9 Sepsis, unspecified organism (principal); J18.9 Pneumonia, unspecified organism; I48.92 Unspecified atrial flutter; E11.65 Type 2 diabetes mellitus with hyperglycemia; I10 Essential (primary) hypertension; I48.0 Paroxysmal atrial fibrillation; R09.02 Hypoxemia; J98.01 Acute bronchospasm; E78.5 Hyperlipidemia, unspecified; R74.8 Abnormal levels of other serum enzymes; G47.30 Sleep apnea, unspecified; Z79.84 Long term (current) use of oral hypoglycemic drugs
CPT/HCPCS: 36569; 36600; 71010; 71020; 71260; 76937; 80048; 81001; 82805; 82948; 83605; 83735; 83880; 84484; 85025; 85610; 85730; 87040; 87804; 93005; 94620; 94640; 94664; 96365; 96375; J0456; J0696; J1815; J2270; J2405; J7050; Q9967